=== PATIENT | male | born 1970 | race Caucasian/White ===

== ENCOUNTER → 2018-07-31 | Outpatient (CLI) | payer OTHER ==
--- NOTE | 2018-07-31 10:48 | REP ---
LEFT FINGERS, FOUR VIEWS: HISTORY: 4th digit injury. There is no acute fracture or dislocation. The joint spaces are normal in appearance. IMPRESSION: There is no acute fracture or dislocation. Electronically Signed by Erickson Delgado MD 07/31/2018 10:50 A
== END ==
LOC: M RAD 08:44
PROVIDERS: ATTEND Surgery
DX: S69.92XA Unspecified injury of left wrist, hand and finger(s), initial encounter (principal); X58.XXXA Exposure to other specified factors, initial encounter; Y92.9 Unspecified place or not applicable; Y99.9 Unspecified external cause status; Y93.9 Activity, unspecified